=== PATIENT | female | born 1945 | race Caucasian/White ===

== ENCOUNTER 2021-09-24 08:56 | Emergency (ER) | payer MEDICARE, OTHER, SELFPAY ==
--- NOTE | 2021-09-24 09:01 | ED.URI ---
HPI - URI/Sore Throat General Chief Complaint: Upper Respiratory Infection Stated Complaint: sore throat, ear pain, tested P for covid Time Seen by Provider: 09/24/21 09:01 Source: patient Mode of arrival: ambulatory Limitations: no limitations History of Present Illness HPI Narrative: Ms. Hector is a 76-year-old female patient presenting to the clinic today with complaints of fever, chills, body aches, sore throat, ear pain and she is also positive for COVID. She reports she tested positive for COVID yesterday. She has had symptoms for 3 days now. She denies any chest pain or shortness of breath. Related Data Home Medications Medication Instructions Recorded Confirmed amlodipine 5 mg tablet 5 mg PO DAILY 09/24/21 09/24/21 cholecalciferol (vitamin D3) 50 50 mcg PO DAILY 09/24/21 09/24/21 mcg (2,000 unit) tablet famotidine 20 mg tablet 20 mg PO DAILY 09/24/21 09/24/21 metoprolol succinate 50 mg 50 mg PO DAILY 09/24/21 09/24/21 tablet,extended release 24 hr rosuvastatin 20 mg tablet 20 mg PO DAILY 09/24/21 09/24/21 Allergies Allergy/AdvReac Type Severity Reaction Status Date / Time lisinopril Allergy Severe Swelling Verified 09/24/21 09:19 of Lip/Tongue/Throat Review of Systems Review of Systems: Pertinent positives per HPI. Patient denies any rash, headache, visual changes, dizziness, shortness of breath, chest pain, palpitations, nausea, vomiting, diarrhea, constipation, abdominal pain, or any urinary issues. PMFSH Comments At the time of my signature, I reviewed and agree with the nursing past medical, surgical, social, and family history. There is no relevant family history pertinent to the patient complaint. Exam Narrative: General: Well-developed, well nourished, in no apparent distress Head: Normocephalic, atraumatic Eyes: Pupils equally round and reactive to light bilaterally, EOM intact, sclera and conjunctive clear, no discharge, lids normal Ears: TMs intact and dull, ear canals clear, no drainage, grossly hearing normal. Nose: Nares patent, clear nasal discharge, mild inflammation, no sinus tenderness. Mouth: Oropharynx without lesions or masses, good dentition, MMM. Oropharynx red Neck: Supple, trachea midline, no enlargement of anterior or posterior cervical nodes, no thyroid masses or goiter palpable. Cardio: Regular rate and rhythm, s1 and s2 normal, no murmur appreciated. Resp: Clear to auscultation bilaterally anteriorly and posteriorly, no rhonchi, rales, wheezing or rubs Course Course Emergency Course: Portions of this record may have been created with voice recognition software. Level of Care: Express Care Visit Vital Signs Vital signs: Vital Signs Temperature 36.7 C 09/24/21 09:11 Pulse Rate 81 09/24/21 09:11 Respiratory Rate 20 09/24/21 09:11 Blood Pressure 148/76 H 09/24/21 09:11 Pulse Oximetry 96 09/24/21 09:11 Oxygen Delivery Room Air 09/24/21 09:11 Temperature 36.7 C 09/24/21 09:11 Pulse Rate 81 09/24/21 09:11 Respiratory Rate 20 09/24/21 09:11 Blood Pressure 148/76 H 09/24/21 09:11 Pulse Oximetry 96 09/24/21 09:11 Oxygen Delivery Room Air 09/24/21 09:11 Vital signs reviewed MDM - URI/Sore Throat MDM Narrative Medical decision making narrative: At the time of visit patient is resting comfortably on the exam table. Her COVID test was positive at home yesterday. I will go ahead and give her a prescription for some Paxlovid. Supportive measures were discussed with the patient she voiced understanding of discharge instructions and agrees to treatment plan. Differential Diagnosis Differential diagnosis: Likely upper respiratory infection, otitis media, sinusitis, viral infection, bronchitis, influenza, pharyngitis and other (COVID) Discharge Plan Discharge Clinical Impression: COVID-19 Patient Disposition: Home, Self-Care Condition: Stable Instructions: Antibiotic Form, How To Wash Your Hands (ED),
[2021-09-24 09:11] VITALS: BP 148/76; PULSE 81; RESP 20; TEMP 36.7; O2SAT 96
== END 2021-09-24 09:35 | disposition home or self-care (01) ==
PROVIDERS: Emergency Provider Nurse Practitioner Family; PCP Internal Medicine
DX: U07.1 COVID-19 (principal); I10 Essential (primary) hypertension
CPT/HCPCS: 99213; G0463

== ENCOUNTER 2023-12-07 09:40 | Emergency (ER) | payer MEDICARE, OTHER, SELFPAY ==
--- NOTE | ~2023-12-07 | XR_ITS ---
EXAMINATION: XR chest 2V DATE: 12/07/2023 10:25 INDICATION: Cough and congestion. TECHNIQUE: Frontal and lateral views of the chest were obtained. COMPARISON: None. FINDINGS: There is mild elevation of right hemidiaphragm. Calcified pulmonary nodules and calcified h ilar lymph nodes are consistent with old granulomatous disease. No pneumonia, pleural effusion, or pn eumothorax. The heart size is normal. IMPRESSION: 1. No acute cardiopulmonary disease. Reviewed, dictated and finalized at location A.
[2023-12-07 09:51] VITALS: BP 169/89; PULSE 74; RESP 20; TEMP 36.6; O2SAT 96
--- NOTE | 2023-12-07 09:52 | ED_ITS ---
HPI - URI/Sore Throat General Chief Complaint: Upper Respiratory Infection Stated Complaint: Cough Time Seen by Provider: 12/07/23 09:52 Source: patient, RN notes reviewed and old records reviewed Mode of arrival: ambulatory Limitations: no limitations History of Present Illness HPI Narrative: Patient presents with a month of sinus pain, congestion, fatigue, cough. She reports over the past week symptoms have been worse. She is worried about pneumonia reports that cough has been productive at times. States that about a month ago she had what she thought was a viral URI, says that she feels as though she never quite recovered from this. Her blood pressure is elevated today. She reports that she is ?tired of taking pills? and quit taking her blood pressure medication. After discussion, she did agree to restart this. She denies any shortness of breath or chest pain. No other concerns and no acute distress noted at this time. Related Data Allergies Allergy/AdvReac Type Severity Reaction Status Date / Time lisinopril Allergy Severe Swelling Verified 12/07/23 09:43 of Lip/Tongue/Throat Review of Systems Review of Systems: All systems reviewed & are unremarkable except as noted in HPI and below Constitutional: Constitutional: Reports no additional constitutional complaints ENT: Reports system reviewed and no additional complaints, except as documented, Reports hoarseness, Reports sinus pain, Reports sinus pressure and Reports sore throat Cardiovascular: Cardiovascular: Reports as per HPI, Reports no additional cardiovascular complaints and Denies chest pain Respiratory: Respiratory: Reports as per HPI, Reports no additional respiratory complaints, Reports cough, Reports excessive phlegm production, Denies dyspnea, Denies stridor and Denies wheezing Gastrointestinal: Gastrointestinal: Reports no additional gastrointestinal complaints PMFSH Comments At the time of my signature, I reviewed and agree with the nursing past medical, surgical, social, and family history. There is no relevant family history pertinent to the patient complaint. Exam Const: General: cooperative, no acute distress, alert and awake Orientation/consciousness: oriented to person, oriented to place and oriented to time HENMT: Head: normal to inspection Ears: TM abnormal dull bilateral Face/Nose/Sinus: sinus tenderness Face and sinus: sinus tenderness maxillary Mouth: Yes moist mucous membranes Throat: posterior oropharynx abnormal erythema and postnasal drainage Resp: Effort & Inspection: normal respiratory effort and able to speak in complete sentences Auscultation: clear to auscultation bilaterally, no crackles, no rales, no rhonchi and no wheezes Cardio: Palpation: normal PMI Rate: regular rate Rhythm: regular rhythm Heart sounds: S1 normal heart sound present and S2 normal heart sound present Neuro: General: oriented to person, oriented to place and oriented to time Cranial nerves: Yes CN's II-XII intact bilaterally Psych: Appearance: grossly normal Thought process: Normal thought process present Insight: Good insight present (Psych) Judgement: Good judgement present (Psych) Course Course Level of Care: Express Care Visit Vital Signs Vital signs: Reviewed MDM - URI/Sore Throat MDM Narrative Medical decision making narrative: Patient nontoxic appearing, no distress. Chest x-ray with no evidence of pneumonia. History and exam consistent with sinusitis, treat with p.o. antibiotics. Elevated blood pressure discussed with patient who agrees to restart her blood pressure medications and follow with her primary care provide r. Emergency department for new or worse symptoms. Discharge instructions reviewed with patient, as well as provided in writing per nursing staff. The instructions also include specific and strict return/GO TO THE ER as well as f/u information. All questions have been answered, and the patient deny any further questions with discharge and discharge plan. Some parts of this dictation were generated by voice recognition software and may contain typographical and/or grammatical inaccuracies. Differential Diagnosis Differential diagnosis: Likely upper respiratory infection, otitis media, sinusitis, viral infection and bronchitis Medical Records Attestation: I reviewed the patient's medical records. Imaging Data Attestation: I personally reviewed and interpreted this imaging study as follows: My impression: No acute process noted Radiologist's impression: [facility] [address] [place] [address] XRay Report Signed Patient: Gianna Hector : 1945 MR#: [id number] Age: 78 Acct:[id number] Loc: [facility] ADM Date: 12/07/23Attending Dr: Ordering Physician: Marjorie Souza FNP Date of Service: 12/07/23 Procedure(s): XR chest 2V Accession Number(s): [id number] cc: Marjorie Souza FNP; Gordon, Janes GONZALEZ ([place])~ EXAMINATION: XR chest 2V DATE: 12/07/2023 10:25 INDICATION: Cough and congestion. TECHNIQUE: Frontal and lateral views of the chest were obtained. COMPARISON: None. FINDINGS: There is mild elevation of right hemidiaphragm. Calcified pulmonary nodules and calcified hilar lymph nodes are consistent with old granulomatous disease. No pneumonia, pleural effusion, or pneumothorax. The heart size is normal. IMPRESSION: 1. No acute cardiopulmonary disease. Reviewed, dictated and finalized at location A. Dictated By: Woo Perez MD 12/07/23 1033 Signed By: <El Discharge Plan Discharge Clinical Impression: Sinusitis Qualifiers: Sinusitis location: maxillary Chronicity: acute Recurrence: not specified as recurrent Qualified Code(s): J01.00 - Acute maxillary sinusitis, unspecified Hypertension Qualifiers: Hypertension type: unspecified Qualified Code(s): I10 - Essential (primary) hypertension Patient Disposition: Home, Self-Care Condition: Stable Instructions: Antibiotic Form, Sinusitis (ED), Hypertension (ED) Additional Instructions: Take all medications as prescribed, follow with primary care provider regarding blood pressure without fail. Emergency department for any new or worse symptoms. Patient Language: Yakut Prescriptions: New amoxicillin-pot clavulanate 875-125 mg tablet 1 tablet PO Q12H Qty: 14 0RF Follow-up/Referrals: Gordon,MD Marrero ([place]) [Primary Care Provider] - 3 Days Time of Disposition: 11:06
== END 2023-12-07 11:10 | disposition home or self-care (01) ==
PROVIDERS: Emergency Provider Nurse Practitioner Family; PCP Internal Medicine
DX: J01.00 Acute maxillary sinusitis, unspecified (principal); I10 Essential (primary) hypertension
CPT/HCPCS: 71046; 99213; G0463